=== PATIENT | female | born 2000 | race Caucasian/White ===

== ENCOUNTER 2021-10-05 09:39 | Day surgery (SDC) | payer MEDICAID ==
[~2021-10-05] VITALS: Ht 147.3 cm; Wt 72.7 kg
[~2021-10-05 09:39] MED LIST: SODIUM CHLORIDE 0.9% 1,000 ML IV ONE; SODIUM CHLORIDE 0.9% 1,000 ML ONE
[2021-10-05] MEDS ORDERED: DEXAMETHASONE SOD PHOS 4 MG/ML VIAL IVP ONE (09:40)
[2021-10-05] MEDS ORDERED: SUCCINYLCHOLINE CHLORIDE 20 MG/ML 10 ML VIAL IVP ONE (09:40)
[2021-10-05] MEDS ORDERED: ONDANSETRON HCL 4 MG/2 ML VIAL IVP ONE (09:40)
[2021-10-05] MEDS ORDERED: PROPOFOL 1% 20 ML VIAL IVP ONE (09:40)
[2021-10-05 10:05] LABS: COVID AG,FIA SOURCE NASAL SWAB
== END 2021-10-05 13:55 | disposition home or self-care (01) ==
LOC: SURGERY 09:39
PROVIDERS: ATTEND Student in an Organized Health Care Education/Training Program
DX: K92.1 Melena (principal); K64.8 Other hemorrhoids; Q90.9 Down syndrome, unspecified; K59.00 Constipation, unspecified; Z86.11 Personal history of tuberculosis; Z79.899 Other long term (current) drug therapy; Z98.890 Other specified postprocedural states
CPT/HCPCS: 43239; 45378; 87426; C1769; J0330; J1100; J2405; J2704; J7030; 88305; 88312; 88313